=== PATIENT | male | born 1955 | race Hispanic/Latino ===

== ENCOUNTER 2020-07-12 15:06 | Outpatient (CLI) | payer MEDICARE ==
--- NOTE | 2020-07-12 16:12 | CT ---
EXAM: CT right femur without contrast PROVIDED CLINICAL HISTORY: Pain COMPARISON: Radiographs 03/25/2020 FINDINGS: Antegrade intramedullary femoral nail with proximal and distal interlocking screws transfixing commin uted mid and proximal right femoral diaphyseal fracture with associated proximal cerclage cable. There is no evidence for hardware loosening or migration. There is bridging callus formation demonstr ated involving some of the fracture margins. Bridging callus formation at the interface of the major fracture fragments superior to the region of the cerclage cable is not definitely seen. The regional soft tissues appear unremarkable in their unenhanced CT appearance with the exception of vascular calcification. Mild degenerative changes are seen involving the knee. The amount of fluid within the right hip and right knee joints appears physiologic. Partially visualized right iliac wing fracture with displacement of the iliac wing fragment about 1 cm posteriorly, demonstrating bridging callus formation involving the visualized portions of the fracture. IMPRESSION: Right iliac and femoral fractures as described.
== END 2020-07-12 15:07 | disposition home or self-care (01) ==
LOC: BICCT 15:06
PROVIDERS: ATTEND Orthopaedic Surgery
DX: S72.001S Fracture of unspecified part of neck of right femur, sequela (principal); S32.302A Unspecified fracture of left ilium, initial encounter for closed fracture